=== PATIENT | male | born 1955 | race Caucasian/White ===

== ENCOUNTER 2021-07-21 20:01 | Emergency (ER) | payer MEDICARE ==
[~2021-07-21] VITALS: Ht 175.3 cm; Wt 90.7 kg
[2021-07-21 20:15] VITALS: BP 124/76
[2021-07-21] MEDS ORDERED: PREDNISONE50 MG PO (21:08)
[2021-07-21] MEDS ORDERED: NASONEX17 GM NASAL (21:08)
[2021-07-21] MEDS ORDERED: ALLEGRA ALLERG180 MG PO (21:08)
== END 2021-07-21 21:34 | disposition home or self-care (01) ==
LOC: M.ERS 20:01
DX: J31.0 Chronic rhinitis (principal); Z20.822 Contact with and (suspected) exposure to COVID-19